=== PATIENT | female | born 1965 | race African-American/Black ===

== ENCOUNTER → 2020-08-07 | Outpatient (CLI) | payer OTHER ==
--- NOTE | 2020-08-08 11:44 | Diagnostic Imaging Report ---
Examination: MRI SPINE CERVICAL WO History: ^CERVICAL RADICULOPATHY; left shoulder and arm pain for 3 weeks. Comparison studies: None Technique: Sagittal T1, T2 and IR, axial T2 and axial gradient echo intravenous contrast: None Findings: Alignment: Normal lordosis. No scoliosis. Cervicomedullary junction: No abnormalities. Patent foramen magnum. Soft tissues: No T2 hyperintense inflammatory changes. Spinal cord: Normal in size and signal from the foramen magnum through T1. Vertebrae: No fractures, infection or neoplasm. Degenerative changes: C1-C2: No abnormalities. C2-C3: Mild left neural foraminal narrowing due to uncovertebral and facet arthropathy. No right foraminal or canal stenosis. No disc herniation or bulge. C3-C4: Diffuse disc bulge and bilateral uncovertebral arthropathy result in mild right greater than left neural foraminal narrowing. No canal stenosis. C4-C5: Right uncovertebral arthropathy results in mild right neural foraminal narrowing. No left foraminal or canal stenosis. C5-C6: Left central and subarticular disc extrusion with inferior migration causes severe left lateral recess narrowing with impingement of the left C6 nerve root and mild canal stenosis. C6-C7: Diffuse disc bulge. No foraminal or canal stenosis. C7-T1: No abnormalities. IMPRESSION: Degenerative changes at C2-C3 through C6-C7 with a large left central and subarticular disc extrusion at at C5-C6 that causes severe left lateral recess narrowing with impingement of the left C6 nerve root and mild canal stenosis. This level could be the cause for patient's left shoulder and arm pain. Signed by: Dr. Vernell Negrete M.D. on 08/08/2020 11:41 AM
== END ==
LOC: MRI 13:36
PROVIDERS: ATTEND Specialist
DX: M54.12 Radiculopathy, cervical region (principal)
CPT/HCPCS: 72141